=== PATIENT | male | born 1970 | race Two or more races ===

== ENCOUNTER 2021-12-08 12:29 | Emergency (ER) | payer SELFPAY ==
[~2021-12-08] VITALS: Ht 185.4 cm; Wt 142.9 kg
[2021-12-08 12:45] VITALS: BP 132/102
== END 2021-12-08 15:21 | disposition left against medical advice (07) ==
LOC: ER 12:29
DX: R06.02 Shortness of breath (principal); Z53.21 Procedure and treatment not carried out due to patient leaving prior to being seen by health care provider
CPT/HCPCS: 71045

== ENCOUNTER 2025-08-28 10:52 | Emergency (ER) | payer MEDICAID, OTHER ==
--- NOTE | 2025-08-28 11:09 | ED.PDOC ---
HPI Comments 54 y/o M, with unknown PMHx presents to the ED for CC of chest pain. Patient is a poor historian and states multiple vague symptoms including: non-specified chest pain, bloody stools, and memory issues. When questioned regarding symptoms patient is reluctant and answers with word salad type answers. Patient comments, to have had past blood transfusion d/t low hemoglobin levels; unknown timeline for last transfusion. Starts telling stories of when he was in [place] [facility] many years ago. Unclear when he last saw a primary care doctor or went to any hospital. At this time patient denies palpitations, shortness of breath, fever, chills, or recent flu-like symptoms. Really after interaction patient then stating that he does not want any test to be done and wants no interventions. Chief Complaint: Chest Pain Time Seen by MD: 11:02 Primary Care Provider: NONE Reviewed Notes: Nurses Notes, Medications, Allergies Allergies: Coded Allergies: NO KNOWN ALLERGIES (Unverified , 12/08/21) Information Source: Patient Mode of Arrival: Wheelchair Severity: Moderate Timing: Days Duration: Since onset Prehospital treatment: None Onset: At Rest Cardiac Risk Factors: None PE Risk Factors: None History of: None Modifying Factors: Nothing Associated Signs and Symptoms: None Past Medical History PAST MEDICAL HISTORY: Denies Surgical History: Denies all surgeries Family History Family History: Unknown Social History Smoker: Unknown Alcohol: Unknown Drugs: Unknown Lives In: Unknown Constitutional: denies: chills, diaphoresis, fatigue, fever, malaise, sweats, weakness, others EENTM: denies: blurred vision, double vision, ear bleeding, ear discharge, ear drainage, ear pain, ear ringing, eye pain, eye redness, hearing loss, mouth pain, mouth swelling, nasal discharge, nose bleeding, nose congestion, nose pain, photophobia, tearing, throat pain, throat swelling, voice changes, others Respiratory: denies: cough, hemoptysis, orthopnea, SOB at rest, shortness of breath, SOB with excertion, stridor, wheezing, others Cardiovascular: reports: chest pain; denies: dizzy spells, diaphoresis, Dyspnea on exertion, edema, irregular heart beat, left arm pain, lightheadedness, palpitations, PND, syncope, others Gastrointestinal: reports: others (bloddy stools); denies: abdomen distended, abdominal pain, blood streaked bowels, constipated, diarrhea, dysphagia, difficulty swallowing, hematemesis, melena, nausea, poor appetite, poor fluid intake, rectal bleeding, rectal pain, vomiting Genitourinary: denies: burning, dysuria, flank pain, frequency, hematuria, incontinence, penile discharge, penile sore, pain, testicle pain, testicle swelling, urgency, others Neurological: denies: dizziness, fainting, headache, left sided numbness, left sided weakness, numbness, paresthesia, pre-existing deficit, right sided numbness, right sided weakness, seizure, speech problems, tingling, tremors, weakness, others Musculoskeletal: denies: back pain, gout, joint pain, joint swelling, muscle pain, muscle stiffness, neck pain, others Integumetry: denies: bruises, change in color, change in hair/nails, dryness, laceration, lesions, lumps, rash, wounds, others Allergic/Immunocompromised: denies: Difficulty Healing, Frequent Infections, Hives, Itching, others Hematologic/Lymphatic: denies: anemia, blood clots, easy bleeding, easy bruising, swollen glands, others Endocrine: denies: excessive hunger, excessive sweating, excessive thirst, excessive urination, flushing, intolerance to cold, intolerance to heat, unexplained weight gain, unexplained weight loss, others Psychiatric: denies: anxiety, bipolar disorder, depression, hopeless, panic disorder, schizophrenia, sleepless, suicidal, others All Other Systems: Reviewed and Negative Physical Exam General Appearance: No Apparent Distress, Normal, Other (Disheveled) HEENT: Normal ENT Inspection, Pharynx Normal, TMs Normal Neck: Full Range of Motion, Non-Tender, Normal, Normal Inspection Respiratory: Chest Non-Tender, Lungs Clear, No Accessory Muscle Use, No Respiratory Distress, Normal Breath Sounds Cardiovascular: No Edema, No JVD, No Murmur, No Gallop, Normal Peripheral Pulses, Regular Rate/Rhythm Breast Exam: Deferred Gastrointestinal: No Organomegaly, Non Tender, No Pulsatile Mass, Normal Bowel Sounds, Soft Genitalia: Deferred Pelvic: Deferred Rectal: Deferred Extremities: No calf tenderness, Normal capillary refill, Normal inspection, Normal range of motion, Non-tender, No pedal edema Musculoskeletal : Apperance: Normal Neurologic: Alert, 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 Was a procedure done?: No CP Differential Dx Differential Diagnosis: Anxiety / Panic Attack Differential Diagnosis: HTN Essential, HTN Accelerated Differential Diagnosis: Angina, Chest Wall Pain, Costochondritis, Esophageal re flux/spasm, Gastritis X-Ray, Labs, Meds, VS Vital Signs Date Time Temp Pulse Resp B/P (MAP) Pulse Ox O2 Delivery O2 Flow Rate FiO2 08/28/25 11:02 103 Time of 1ST Reevaluation: 11:32 Reevaluation 1ST: Unchanged Patient Education/Counseling: Diagnosis, Treatment Family Education/Counseling: No Family Present SEPSIS Sepsis Screen Physician Orders Electrocardigram (08/28/25 10:54) Electrocardigram (08/28/25 11:54) Electrocardigram (08/28/25 13:54) Vital Signs Date Time Temp Pulse Resp B/P (MAP) Pulse Ox O2 Delivery O2 Flow Rate FiO2 08/28/25 11:02 103 Departure 1 Departure Time of Disposition: 22:46 (54-year-old male with unclear past medical history presenting for numerous vague complaints today. He was stating that he has an emia, reporting rectal bleeding, however, unclear time frame. Was initially reporting chest discomfort, then denying that. Ultimately the patient stated that he wanted no interventions to be done. He appeared disheveled, however, was in no acute distress. Patient eloped prior to workup.) Impression: Primary Impression: Rectal bleeding Additional Impression: Malaise Disposition: LEFT AWOL/ELOPED Condition: Stable Discharged With: Self Critical Care Note Critical Care Time?: No Stability Stability form required: No Heart Score Heart Score: Heart Score Response (Comments) Value History N/A 0 EKG N/A 0 Age N/A 0 Risk Factors N/A 0 Troponin N/A 0 Total 0 I personally scribed for CLIVE ODELL MD ([email or web address]) on 08/28/25 at 11:09. Electronically submitted by Addie Amanda ([email or web address]). CLIVE ODELL MD Aug 28, 2025 11:09
[2025-08-28 22:47] VITALS: PULSE 103
--- NOTE | 2025-08-29 10:02 | ECG ---
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
== END 2025-08-28 11:26 | disposition left against medical advice (07) ==
LOC: ER 10:52
DX: K62.5 Hemorrhage of anus and rectum (principal); R53.81 Other malaise; Z79.899 Other long term (current) drug therapy
CPT/HCPCS: 93005